=== PATIENT | male | born 1970 | race Caucasian/White ===

== ENCOUNTER 2017-11-04 21:19 | Emergency (ER) | payer BC ==
[~2017-11-04] VITALS: Ht 172.7 cm; Wt 96.3 kg
[2017-11-04 21:46] LABS: HEMATOCRIT 41.3 % (38.0-50.0); HEMOGLOBIN 14.3 G/DL (12.5-16.6); MCH 32.3 PG (29.0-34.0); MCHC 34.6 G/DL (30.0-36.0); MCV 93.2 FL (86-99); PLATELET COUNT 184 K/uL (156-360); RBC DIS.WIDTH-CV 12.8 % (11.8-14.6); RBC DIS.WIDTH-SD 43.7 % (39-53); RED BLOOD COUNT 4.43 M/uL (4.00-5.50); WHITE BLOOD COUNT 9.8 K/uL (4.1-10.2)
[2017-11-04 21:54] LABS: ALBUMIN 4.5 g/dL (3.2-4.8); CHLORIDE 102 mEq/L (99-109); POTASSIUM 3.8 mEq/L (3.7-5.4); SODIUM 136 mEq/L (136-147)
[2017-11-04 21:56] LABS: GLUCOSE 100 mg/dL (70-99)
[2017-11-04 21:57] LABS: TOTAL PROTEIN 7.5 g/dL (6.4-8.3)
[2017-11-04 21:58] LABS: TOTAL BILIRUBIN 0.8 mg/dL (0.0-1.0)
[2017-11-04 22:00] LABS: ALKALINE PHOSPHATASE 60 IU/L (3-129); CREATININE 1.1 mg/dL (0.6-1.3); GFR ESTIMATE (CALCULATED) > 59 mL/min/ (58.99-99999)
[2017-11-04 22:01] LABS: UREA NITROGEN (BUN) 16 mg/dL (9-23)
[2017-11-04 22:02] LABS: AST (GOT) 21 IU/L (2-34)
[2017-11-04 22:03] LABS: ALT (GPT) 17 IU/L (3-49)
[2017-11-04 22:18] LABS: APPEARANCE CLEAR ((CLEAR)); BILIRUBIN NEGATIVE; BLOOD SMALL; COLOR YELLOW ((YELLOW)); GLUCOSE (STRIP) NEGATIVE; KETONES NEGATIVE; LEUKOCYTES NEGATIVE; NITRITE NEGATIVE; PROTEIN (STRIP) NEGATIVE; SPECIFIC GRAVITY 1.015 (1.000-1.030); UROBILINOGEN 0.2 MG/DL (0.2-1.0)
[2017-11-04 22:24] LABS: BACTERIA NONE SEEN /HPF; EPITHELIAL CELLS NONE SEEN /HPF; MUCUS TRACE /LPF; UCUL ADDED? NO; WHITE BLOOD CELLS 0-5 /HPF (0-5)
[2017-11-05] MEDS ORDERED: BENTYL20 MG PO (00:18)
[2017-11-05] MEDS ORDERED: ZOFRAN4 MG PO (00:18)
[2017-11-05] MEDS ORDERED: FLAGYL500 MG PO (00:18)
[2017-11-05] MEDS ORDERED: CIPRO500 MG PO (00:18)
[2017-11-05 00:52] VITALS: BP 124/83
== END 2017-11-05 00:46 | disposition home or self-care (01) ==
LOC: EME 21:19
DX: K57.32 Diverticulitis of large intestine without perforation or abscess without bleeding (principal); R31.9 Hematuria, unspecified; N20.0 Calculus of kidney; Z87.891 Personal history of nicotine dependence; Z87.442 Personal history of urinary calculi; Z98.890 Other specified postprocedural states
CPT/HCPCS: 74177; 80053; 81003; 85027; 99281; 99285; J2405; J3010; J7030